=== PATIENT | male | born 1990 | race Caucasian/White ===

== ENCOUNTER 2019-01-10 23:15 | Emergency (ER) | payer MEDICAID, OTHER ==
[2019-01-10] MEDS ORDERED: MORPHINE SULFATE 4 MG/ML SYRINGE IVP STA (23:55)
[2019-01-10] MEDS ORDERED: SODIUM CHLORIDE 0.9% 1,000 ML IV STA (23:56)
--- NOTE | 2019-01-10 23:59 | ED ---
General Adult HPI - General Chief complaint: Extremity Injury, Upper Stated complaint: Lt Elbow Injury Time Seen by Provider: 01/10/19 23:54 Source: patient Mode of arrival: ambulatory Limitations: no limitations - History of Present Illness Initial comments: Dictation was produced using [employer] dictation software. please excuse any gra mmatical, word or spelling errors. Chief Complaint: 28-year-old male with past medical history of seizures presents with left elbow pain. History of Present Illness: 28-year-old male presents with left elbow pain. Patient was wrestling when he hurt his elbow. Patient states he was trying to get out of a special wrestling hold when he felt his elbow pop. Patient has any numbness and paresthesias to the left hand. The ROS documented in this emergency department record has been reviewed and confirmed by me. Those systems with pertinent positive or negative responses have been documented in the HPI. All other systems are other negative and/or noncontributory. PHYSICAL EXAM: General Impression: Alert and oriented x3, not in acute distress HEENT: Normocephalic atraumatic, extra-ocular movements intact, pupils equal and reactive to light bilaterally, mucous membranes moist. Cardiovascular: Heart regular rate and rhythm, S1&S2 audible, no murmurs, rubs or gallops Chest: Lungs clear to auscultation bilaterally, no rhonchi, no wheeze, no rales Abdomen: Bowel sounds present, abdomen soft, non-tender, non-distended, no organomegaly Musculoskeletal: Pulses present and equal in all extremities, no peripheral edema, obvious deformity to the left elbow which is likely dislocated Motor: no focal deficits noted Neurological: CN II-XII grossly intact, no focal motor or sensory deficits noted Skin: Intact with no visualized rashes Psych: Normal affect and mood ED course: 28-year-old male presents with left elbow injury. There is obvious deformity on physical examination. Neurovascularly intact. Vital signs upon arrival shows heart rate of 118, rest of vital signs within acceptable limits. X-rays showed posterior elbow dislocation of the left upper extremity. Patient given morphine. Left elbow reduction was performed under procedural sedation. Patient given propofol. Patient tolerated procedure well. Patient observed in the emergency department status post procedure sedation and successful reduction. Patient given repeat IV analgesia. Patient given prescription for by mouth analgesia to take at home. He is given referral to orthopedic surgery. He is placed in a posterior splint with sling. Repeat neurovascular exam was intact. Patient denies any neurovascular complaints. - Related Data Previous Rx's Medication Instructions Recorded HYDROcodone/APAP 5-325MG [[place] 1 tab PO Q6HR PRN 3 Days #12 tab 01/11/19 5-325] Allergies Allergy/AdvReac Type Severity Reaction Status Date / Time No Known Allergies Allergy Verified 02/14/14 01:20 Review of Systems ROS Statement: Those systems with pertinent positive or pertinent negative responses have been documented in the HPI. ROS Other: All systems not noted in ROS Statement are negative. Past Medical History Past Medical History: No Reported History Additional Past Medical History / Comment(s): seizure when hot History of Any Multi-Drug Resistant Organisms: None Reported Past Surgical History: No Surgical Hx Reported Past Psychological History: No Psychological Hx Reported Smoking Status: Current some day smoker Past Alcohol Use History: Occasional Past Drug Use History: Marijuana General Exam Limitations: no limitations Course Vital Signs 01/10/19 01/11/19 01/11/19 23:40 00:13 00:27 Temperature 98.0 F Pulse Rate 118 H 102 H 85 Respiratory 18 18 18 Rate Blood Pressure 134/82 130/100 135/95 O2 Sat by Pulse 99 96 98 Oximetry 01/11/19 01/11/19 01/11/19 00:34 00:35 00:38 Temperature Pulse Rate 108 H 83 101 H Respiratory 18 18 17 Rate Blood Pressure 142/93 121/105 158/107 O2 Sat by Pulse 100 100 100 Oximetry 01/11/19 01/11/19 00:47 00:53 Temperature Pulse Rate 110 H 82 Respiratory 17 18 Rate Blood Pressure 152/101 144/88 O2 Sat by Pulse 100 100 Oximetry Disposition Clinical Impression: Posterior dislocation of elbow Disposition: HOME SELF-CARE Condition: Good Instructions (If sedation given, give patient instructions): Elbow Dislocation (ED) Prescriptions: HYDROcodone/APAP 5-325MG [[place] 5-325] 1 tab PO Q6HR PRN 3 Days #12 tab PRN Reason: Severe Pain Is patient prescribed a controlled substance at d/c from ED?: Yes If prescribed controlled substance>3 days was MAPS reviewed?: Prescribed <3 Days Referrals: Roshan Ahumada MD [STAFF PHYSICIAN] - 1-2 days Time of Disposition: 01:06
[2019-01-11] MEDS ORDERED: PROPOFOL 10 MG/ML 20 ML VIAL IV ONE (00:02)
--- NOTE | 2019-01-11 00:31 | XR ---
EXAM: XR Left Elbow Complete, 3 or More Views CLINICAL HISTORY: ITS.[email or web address] XR Reason: Pain TECHNIQUE: Frontal, lateral and oblique views of the left elbow. COMPARISON: No relevant prior studies available. IMPRESSION: There is dislocation of the elbow joint with ventral subluxation of the distal humerus. No definite fracture is identified.
[2019-01-11] MEDS ORDERED: SODIUM CHLORIDE 0.9% 1,000 ML IV ONE (00:43)
--- NOTE | 2019-01-11 00:53 | XR ---
EXAM: XR Left Elbow Complete, 3 or More Views CLINICAL HISTORY: [email or web address].[email or web address] XR Reason: Pain TECHNIQUE: Frontal, lateral and oblique views of the left elbow. COMPARISON: 01/11/19 IMPRESSION: Status post reduction in normal anatomic alignment.
[2019-01-11 00:54] VITALS: RESP 18
[2019-01-11] MEDS ORDERED: MORPHINE SULFATE 4 MG/ML SYRINGE IVP STA (01:04)
--- NOTE | 2019-01-11 01:09 | ED ---
Disposition Clinical Impression: Posterior dislocation of elbow Disposition: HOME SELF-CARE Condition: Good Instructions (If sedation given, give patient instructions): Elbow Dislocation (ED) Prescriptions: HYDROcodone/APAP 5-325MG [[place] 5-325] 1 tab PO Q6HR PRN 3 Days #12 tab PRN Reason: Severe Pain Is patient prescribed a controlled substance at d/c from ED?: Yes If prescribed controlled substance>3 days was MAPS reviewed?: Prescribed <3 Days Referrals: Roshan Ahumada MD [STAFF PHYSICIAN] - 1-2 days Time of Disposition: 01:09 Procedures - [place] Protocol (Time Out) Patient Identification (2 identifiers required): Chart, Verbal, Arm Band, Name, Birthdate Patient/Legal Precision Lathe Operator has Confirmed: Identity, Site, Procedure, Consent Site: [email or web address] Site Verified With Patient/Guardian: Yes Final Confirmation: Radiographs, Confirmed w/Provider - Procedural Sedation Procedural Sedation Start Time: 12:32 Procedural Sedation Stop Time: 00:42 Indications: fracture/dislocation reduction ASA Class: I Mallampati Airway Score: 1 Preparation: desk monitor applied, pulse oximeter, capnometry used, supplemental O2 applied, reversal agents at bedside, suction/airway equipment at bedside IV Propofol Dose (mgs): 125 Complications: none Patient Tolerated Procedure: well
[2019-01-11 01:10] VITALS: TEMP 98.3
[2019-01-11 01:32] VITALS: BP 152/98; PULSE 90
== END 2019-01-11 01:40 | disposition home or self-care (01) ==
LOC: EC 23:15
DX: S53.125A Posterior dislocation of left ulnohumeral joint, initial encounter (principal); F17.200 Nicotine dependence, unspecified, uncomplicated; X58.XXXA Exposure to other specified factors, initial encounter; Y93.72 Activity, wrestling
CPT/HCPCS: 73070 ×2; 99283; 24600; 99152; 99153 ×4; J2270; J2704

== ENCOUNTER → 2019-06-22 | Outpatient (CLI) | payer MEDICAID ==
[2019-06-22 15:30] LABS: Basophils % (A) 1 %; Eosinophils # (A) 0.1 k/uL (0-0.7); Eosinophils % (A) 1 %; HCT 45.2 % (39.0-53.0); HGB 15.5 gm/dL (13.0-17.5); Lymphocytes # (A) 2.9 k/uL (1.0-4.8); Lymphocytes % (A) 45 %; MCH 31.9 pg (25.0-35.0); MCHC 34.2 g/dL (31.0-37.0); MCV 93.3 fL (80.0-100.0); Monocytes # (A) 0.3 k/uL (0-1.0); Monocytes % (A) 5 %; Neutrophils % (A) 46 %; Platelet Count 306 k/uL (150-450); RBC 4.84 m/uL (4.30-5.90); WBC 6.4 k/uL (3.8-10.6)
[2019-06-22 18:48] LABS: African American GFR (CKD) 117.4 (60.0-200.0); Albumin 4.7 g/dL (3.80-4.90); Albumin/Globulin Ratio 2.94 (1.60-3.17); Anion Gap 7.5 mmol/L (4.00-12.00); Calcium 9.7 mg/dL (8.7-10.3); Carbon Dioxide 28.5 mmol/L (21.6-31.8); Chol/HDL Ratio 2.57; Globulin 1.6 g/dL (1.6-3.3); LDL Cholesterol,Calculated 78.6 mg/dL (0.0-131.0); Non-African American GFR(CKD) 101.3 (60.0-200.0); Potassium 4.3 mmol/L (3.5-5.5); Total Bilirubin 0.9 mg/dL (0.2-1.2); Total Protein 6.3 g/dL (6.2-8.2); VLDL Calculation 12.4 mg/dL (5.00-40.00)
== END | disposition home or self-care (01) ==
LOC: LABWHC1 14:46
PROVIDERS: ATTEND Family Medicine
DX: R19.7 Diarrhea, unspecified (principal); R11.0 Nausea
CPT/HCPCS: 36415; 80053; 80061; 82150; 83690; 84443; 85025

== ENCOUNTER → 2023-04-23 | Outpatient (CLI) | payer OTHER ==
[2023-04-23 16:08] LABS: ALT 17 U/L (10-49); AST 11 U/L (14-35); Albumin 5.1 d/dL (3.8-4.9); Albumin/Globulin Ratio 2.55 Ratio (1.60-3.17); Alkaline Phosphatase 56 U/L (41-126); Blood Urea Nitrogen 16.9 mg/dL (9.0-27.0); Calcium 10.3 mg/dL (8.7-10.3); Carbon Dioxide 26.1 mmol/L (21.6-31.8); Chloride 102 mmol/L (96-109); Glucose 95 mg/dL (70-110); LDL Cholesterol,Calculated 104.2 mg/dL (0.0-131.0); Lipase 14 U/L (14-60); Potassium 4.9 mmol/L (3.5-5.5); Sodium 139 mmol/L (135-145); Total Bilirubin 0.4 mg/dL (0.3-1.2); Total Protein 7.1 d/dL (6.2-8.2); VLDL Calculation 12.36 mg/dL (5.00-40.00)
[2023-04-23 17:42] LABS: Basophils # (A) 0.03 X 10*3/uL (0.00-0.10); Basophils % (A) 0.3 %; Eosinophils # (A) 0.05 X 10*3/uL (0.04-0.35); Eosinophils % (A) 0.6 %; HCT 49.7 % (39.6-50.0); HGB 16.6 d/dL (13.0-17.0); Lymphocytes # (A) 2.94 X 10*3/uL (0.90-5.00); Lymphocytes % (A) 32.6 %; MCH 31.5 pg (27.0-32.0); MCHC 33.4 d/dL (32.0-37.0); MCV 94.3 FL (80.0-97.0); Mean Platelet Volume 9.8 FL (9.5-12.2); Monocytes # (A) 0.63 X 10*3/uL (0.20-1.00); NRBC Per 100 WBC 0 X 10*3/uL (0.00-0.01); Neutrophils # (A) 5.33 X 10*3/uL (1.80-7.70); Neutrophils % (A) 59.2 %; Platelet Count 271 X 10*3/uL (140-440); RBC 5.27 X 10*6/uL (4.40-5.60); RDW 11.9 % (11.5-14.5); WBC 9.01 X 10*3/uL (4.50-10.00)
== END | disposition home or self-care (01) ==
LOC: LABWHC1 09:28
PROVIDERS: ATTEND Internal Medicine
DX: Z00.00 Encounter for general adult medical examination without abnormal findings (principal); Z11.59 Encounter for screening for other viral diseases; K58.2 Mixed irritable bowel syndrome; K21.9 Gastro-esophageal reflux disease without esophagitis
CPT/HCPCS: 36415; 80053; 80061; 83690; 83735; 84443; 85025; 86803

== ENCOUNTER → 2023-06-07 | Outpatient (CLI) | payer OTHER ==
--- NOTE | 2023-06-07 11:30 | US ---
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 FINDINGS: EXAM MEASUREMENTS: Liver Length: 15.7 cm Gallbladder Wall: 0.1 cm CBD: 0.3 cm Spleen: 10.5 cm Right Kidney: 10.7 x 4.1 x 4.5 cm Left Kidney: 11.1 x 5.4 x 4.4 cm PRODUCTION TRAINER NOTES: Pancreas: wnl Liver: wnl Gallbladder: wnl Evidence for sonographic Ahumada's sign: No CBD: wnl Spleen: wnl Right Kidney: wnl Left Kidney: wnl Upper IVC: wnl Abd Aorta: wnl Machine Plate Stacker notes:No abnormality visualized at this time IMPRESSION: Unremarkable sonographic examination of the abdomen.
== END | disposition home or self-care (01) ==
LOC: RADUSWWP 08:09
PROVIDERS: ATTEND Internal Medicine
DX: K58.2 Mixed irritable bowel syndrome (principal)
CPT/HCPCS: 76700